=== PATIENT | female | born 1930 | race Caucasian/White ===

== ENCOUNTER 2016-11-01 09:22 | Emergency (ER) | payer MEDICARE ==
[2016-11-01] MEDS ORDERED: IBUPROFEN 600 MG TABLET PO ONE (09:36)
[2016-11-01] MEDS ORDERED: ACETAMINOPHEN 325 MG TABLET PO ONE (09:41)
--- NOTE | 2016-11-01 09:45 | ER Document Report ---
ED General - General Chief Complaint: Fall Injury Stated Complaint: FALL/ARM PAIN Time Seen by Provider: 11/01/16 09:36 Mode of Arrival: Ambulatory Information source: Patient Notes: 85-year-old female presents after mechanical fall striking her left side. Patient admits to left elbow shoulder pain. Patient notes she is unable to move it due to the pain. Denies any other injuries denies any back pain neck pain TRAVEL OUTSIDE OF THE [place] IN LAST 30 DAYS: No - HPI Onset: Just prior to arrival Onset/Duration: Sudden Quality of pain: Achy Severity: Mild Pain Level: 1 Associated symptoms: Body/muscle aches Exacerbated by: Movement Relieved by: Denies Similar symptoms previously: Yes Recently seen / treated by doctor: Yes - Related Data Allergies/Adverse Reactions: codeine [Codeine] Allergy (Severe, Verified 11/01/16 09:27) Hives cyclosporine [From Restasis] Allergy (Severe, Verified 11/01/16 09:27) redness,bloody nose Past Medical History - Social History Smoking Status: Never Smoker Cigarette use (# per day): No Chew tobacco use (# tins/day): No Smoking Education Provided: No Family History: Reviewed & Not Pertinent Patient has suicidal ideation: No Patient has homicidal ideation: No - Past Medical History Cardiac Medical History: Reports: Hx Coronary Artery Disease - heart stent, Hx Hypertension - on meds Denies: Hx Heart Attack Pulmonary Medical History: Reports: Hx Bronchitis - hx of Denies: Hx Asthma, Hx COPD, Hx Pneumonia Neurological Medical History: Denies: Hx Cerebrovascular Accident, Hx Seizures Endocrine Medical History: Reports: Hx Diabetes Mellitus Type 2 Renal/ Medical History: Denies: Hx Peritoneal Dialysis GI Medical History: Denies: Hx Hepatitis, Hx Hiatal Hernia, Hx Ulcer Musculoskeltal Medical History: Reports Hx Arthritis - back Infectious Medical History: Denies: Hx Hepatitis Past Surgical History: Reports: Hx Hysterectomy, Hx Orthopedic Surgery - foot / back. Denies: Hx Mastectomy, Hx Open Heart Surgery, Hx Pacemaker - Immunizations Hx Diphtheria, Pertussis, Tetanus Vaccination: Yes Review of Systems - Review of Systems Notes: REVIEW OF SYSTEMS: CONSTITUTIONAL : Denies fever, chills, or sweats. Denies recent illness. EENT: Denies eye, ear, throat, or mouth pain or symptoms. Denies nasal or sinus congestion or discharge. Denies throat, tongue, or mouth swelling or difficulty swallowing. CARDIOVASCULAR: Denies chest pain. Denies palpitations or racing or irregular heart beat. Denies ankle edema. RESPIRATORY: Denies cough, cold, or chest congestion. Denies shortness of breath, difficulty breathing, or wheezing. GASTROINTESTINAL: Denies abdominal pain or distention. Denies nausea, vomiting , or diarrhea. Denies blood in vomitus, stools, or per rectum. Denies black, tarry stools. Denies constipation. GENITOURINARY: Denies difficulty urinating, painful urination, burning, frequency, blood in urine, or discharge. FEMALE GENITOURINARY: Denies vaginal bleeding, heavy or abnormal periods, irregular periods. Denies vaginal discharge or odor. MUSCULOSKELETAL: Admits to left elbow shoulder pain SKIN: Denies rash, lesions or sores. HEMATOLOGIC : Denies easy bruising or bleeding. LYMPHATIC: Denies swollen, enlarged glands. NEUROLOGICAL: Denies confusion or altered mental status. Denies passing out or loss of consciousness. Denies dizziness or lightheadedness. Denies headache. Denies weakness or paralysis or loss of use of either side. Denies problems with gait or speech. Denies sensory loss, numbness, or tingling. Denies seizures. PSYCHIATRIC: Denies anxiety or stress. Denies depression, suicidal ideation, or homicidal ideation. ALL OTHER SYSTEMS REVIEWED AND NEGATIVE. PHYSICAL EXAMINATION: GENERAL: Well-appearing, well-nourished and in no acute distress. HEAD: Atraumatic, normocephalic. EYES: Pupils equal round and reactive to light, extraocular movements intact, conjunctiva are normal. ENT: Nares patent, oropharynx clear without exudates. Moist mucous membranes. NECK: Normal range of motion, supple without lymphadenopathy LUNGS: Breath sounds clear to auscultation bilaterally and equal. No wheezes rales or rhonchi. HEART: Regular rate and rhythm without murmurs ABDOMEN: Soft, nontender, nondistended abdomen. No guarding, no rebound. No masses appreciated. Female : deferred Musculoskeletal: Range of motion of the left elbow shoulder tender to palpation NEUROLOGICAL: Cranial nerves grossly intact. Normal speech, normal gait. Normal sensory, motor exams PSYCH: Normal mood, normal affect. SKIN: Warm, Dry, normal turgor, no rashes or lesions noted. Dictation was performed using Dragon voice recognition software Physical Exam - Vital signs Vitals: Temp Pulse Resp BP Pulse Ox 97.9 F 83 16 163/95 H 95 11/01/16 09:27 11/01/16 09:27 11/01/16 09:27 11/01/16 09:27 11/01/16 09:27 Course - Re-evaluation Re-evalutation: 11/01/16 09:45 Probable fracture of the elbow x-ray pending 11/01/16 10:45 Distal humeral fracture is noted, patient will be splinted and given orthopedic follow-up 11/01/16 10:57 After performing a Medical Screening Examination, I estimate there is LOW risk for INTRACRANIAL HEMORRHAGE, UNSTABLE SPINE FRACTURE, CENTRAL CORD SYNDROME, CAUDA EQUINA, THORACIC AORTIC DISSECTION, PNEUMOTHORAX, PERFORATED BOWEL, RUPTURED ABDOMINAL AORTIC ANEURYSM, ACUTE TENDON RUPTURE, COMPARTMENT SYNDROME, or OPEN FRACTURE, thus I consider the discharge disposition reasonable. Also, there is no evidence or peritonitis, sepsis, or toxicity. I have reevaluated this patient multiple times and no significant life threatening changes are noted. The patient and I have discussed the diagnosis and risks, and we agree with discharging home to follow-up with their primary doctor with the understanding that symptoms and presentations can change. We also discussed returning to the Emergency Department immediately if new or worsening symptoms occur. We have discussed the symptoms which are most concerning (e.g., bloody stool, fever, changing or worsening pain, vomiting) that necessitate immediate return. - Vital Signs Vital signs: Temp Pulse Resp BP Pulse Ox 97.9 F 83 16 163/95 H 95 11/01/16 09:27 11/01/16 09:27 11/01/16 09:27 11/01/16 09:27 11/01/16 09:27 - Diagnostic Test Radiology reviewed: Image reviewed, Reports reviewed - reprt given to patient Procedures - Immobilization Left Elbow Time completed: 10:57 Pre-Proc Neuro Vasc Exam: Normal Immobilizer type: Long arm posterior, Sling Performed by: PCT Post-Proc Neuro Vasc Exam: Normal Alignment checked and good: Yes Discharge - Discharge Clinical Impression: Humerus distal fracture Qualifiers: Encounter type: initial encounter Fracture type: closed Fracture morphology: other fracture Fracture alignment: nondisplaced Laterality: left Qualified Code( s): S42.495A - Other nondisplaced fracture of lower end of left humerus, initial encounter for closed fracture Shoulder pain Qualifiers: Chronicity: acute Laterality: left Qualified Code(s): M25.512 - Pain in left shoulder Condition: Stable Disposition: HOME, SELF-CARE Instructions: Fracture Proximal Humerus Referrals: KATLYN ORELLANA MD [Primary Care Provider] - Follow up as needed CHAMP WEBSTER MD [ACTIVE STAFF] - Follow up tomorrow
--- NOTE | 2016-11-01 10:29 | RADIOLOGY REPORT (SQ) ---
EXAM DESCRIPTION: ELBOW LEFT OVER 2 VIEWS COMPLETED DATE/TIME: 11/01/2016 9:57 am REASON FOR STUDY: fall COMPARISON: None. NUMBER OF VIEWS: Four views. TECHNIQUE: AP, lateral, and both oblique radiographic images acquired of the left elbow. LIMITATIONS: None. FINDINGS: MINERALIZATION: Normal. BONES: Minimally displaced acute fracture involving the distal humerus in the supracondylar region. Deformity of the radial head which does not appear acute. Small well corticated bony densities adjac ent to the lateral condyle in coronoid process likely old avulsion injuries. JOINT: Large joint effusion. SOFT TISSUES: No soft tissue swelling. No foreign body. OTHER: No other significant finding. IMPRESSION: Acute fracture involving the distal humerus. TECHNICAL DOCUMENTATION: JOB ID: [id number] [employer]- All Rights Reserved
--- NOTE | 2016-11-01 10:31 | RADIOLOGY REPORT (SQ) ---
EXAM DESCRIPTION: SHOULDER LEFT 2 OR MORE VIEWS/ left shoulder COMPLETED DATE/TIME: 11/01/2016 9:57 am REASON FOR STUDY: fall COMPARISON: None. NUMBER OF VIEWS: Three views. TECHNIQUE: Internal rotation, external rotation, and Y view images acquired of the left shoulder. LIMITATIONS: None. FINDINGS: MINERALIZATION: Normal. BONES: No acute fracture or dislocation. No worrisome bone lesions. JOINTS: Arthritic changes glenohumeral and AC joint. VISUALIZED LUNGS AND RIBS: No pneumothorax. No rib fracture. SOFT TISSUES: Tendon calcification lateral to the humeral head. OTHER: Surgical clips left axilla IMPRESSION: No acute fracture dislocation. Chronic changes are noted. TECHNICAL DOCUMENTATION: JOB ID: [id number] [employer]- All Rights Reserved
[2016-11-01 11:41] VITALS: BP 154/70
== END 2016-11-01 11:50 | disposition home or self-care (01) ==
LOC: ER 09:22
PROC: 2W39X1Z Immobilization of Left Upper Extremity using Splint (ICD-10-PCS; principal; 2016-11-01)
DX: S42.495A Other nondisplaced fracture of lower end of left humerus, initial encounter for closed fracture (principal); M25.512 Pain in left shoulder; W18.30XA Fall on same level, unspecified, initial encounter; I25.10 Atherosclerotic heart disease of native coronary artery without angina pectoris; I10 Essential (primary) hypertension; E11.9 Type 2 diabetes mellitus without complications; Z88.6 Allergy status to analgesic agent; Z90.710 Acquired absence of both cervix and uterus
CPT/HCPCS: 99283; 73080; 73030; 29105; A9270

== ENCOUNTER 2016-11-02 05:52 | Emergency (ER) | payer MEDICARE ==
--- NOTE | 2016-11-02 07:11 | ER Document Report ---
HPI - HPI Patient complains to provider of: Left elbow pain Onset: Yesterday Onset/Duration: Persistent Pain Level: 4 Context: 85-year-old female with distal left humerus fracture diagnosed yesterday is complaining of persistent pain and inability to sleep. Tylenol did not relieve her pain and the splint is bothering her. She has an appointment with Dr. Webster on Tuesday. Associated Symptoms: None Exacerbated by: Movement Relieved by: Denies Similar symptoms previously: No Recently seen / treated by doctor: Yes - ROS ROS below otherwise negative: Yes Systems Reviewed and Negative: Yes All other systems reviewed and negative - CARDIOVASCULAR Cardiovascular: DENIES: Chest pain - REPRODUCTIVE Reproductive: DENIES: : - DERM Skin Color: Normal Past Medical History - General Information source: Patient - Social History Smoking Status: Never Smoker Frequency of alcohol use: None Drug Abuse: None Lives with: Family Family History: Reviewed & Not Pertinent Patient has suicidal ideation: No Patient has homicidal ideation: No - Past Medical History Cardiac Medical History: Reports: Hx Coronary Artery Disease - heart stent, Hx Hypertension - on meds Pulmonary Medical History: Reports: Hx Bronchitis - hx of Endocrine Medical History: Reports: Hx Diabetes Mellitus Type 2 Renal/ Medical History: Denies: Hx Peritoneal Dialysis Musculoskeltal Medical History: Reports Hx Arthritis - back Past Surgical History: Reports: Hx Hysterectomy, Hx Orthopedic Surgery - foot / back - Immunizations Hx Diphtheria, Pertussis, Tetanus Vaccination: Yes Vertical Provider Document - CONSTITUTIONAL Agree With Documented VS: Yes Exam Limitations: No Limitations - INFECTION CONTROL TRAVEL OUTSIDE OF THE [place] IN LAST 30 DAYS: No - HEENT HEENT: Normocephalic - NECK Neck: Supple - RESPIRATORY O2 Sat by Pulse Oximetry: 95 - MUSCULOSKELETAL/EXTREMETIES Musculoskeletal/Extremeties: Tender, Edema, Eccymosis - left elbow after the splint removed, distal N/V intact - NEURO Level of Consciousness: Awake, Alert, Appropriate Motor/Sensory: No Motor Deficit, No Sensory Deficit - DERM Integumentary: Warm, Dry Course - Re-evaluation Re-evalutation: 11/02/16 08:38 Pain is reduced with slight nausea I am giving her sandra talia and crackers and will redo the splint with Alexis the PCP. - Vital Signs Vital signs: Temp Pulse Resp BP Pulse Ox 83 16 141/79 H 95 11/02/16 06:04 11/02/16 06:04 11/02/16 06:04 11/02/16 06:04 Procedures - Immobilization Left Posterior Arm Time completed: 09:22 Pre-Proc Neuro Vasc Exam: Normal Immobilizer type: Long arm posterior Performed by: PCT - and myself Post-Proc Neuro Vasc Exam: Normal Alignment checked and good: Yes Notes: 11/02/16 09:22 longer sling applied, pt more comfortable Discharge - Discharge Clinical Impression: Pain management, hx fx distal left humerus, splint reapplication Condition: Good Disposition: HOME, SELF-CARE Instructions: Splint Precautions ([facility]), Temporary Splint ([facility]), Sling to be Used ([facility]), Oral Narcotic Medication ([facility]), Antinausea Medication ([facility]), Fracture ([facility]) Additional Instructions: use pillows to support while sleeping, take the sling off at night see dr. webster as planned on tuesday to er sooner if worse take your pain medication Please complete the patient satisfaction survey if you get one, and return it.. If you do not receive a survey, then you can go to the [facility] website, [email or web address] and place your comments about your very good care. Thank you very much. It was a pleasure being your medical provider today. Prescriptions: Ondansetron HCl [Zofran 4 mg Tablet] 1 - 2 tab PO Q4H PRN #60 tablet PRN Reason: Oxycodone HCl/Acetaminophen [Percocet 5-325 mg Tablet] 1 tab PO ASDIR PRN #30 tablet PRN Reason: Referrals: CHAMP WEBSTER MD [ACTIVE STAFF] - 11/05/16
[2016-11-02] MEDS ORDERED: OXYCODONE-ACETAMINOPHEN 5-325 MG TABLET PO ONE (07:18)
[2016-11-02] MEDS ORDERED: ONDANSETRON 4 MG TAB.RAPDIS PO ONE (07:18)
[2016-11-02 10:12] VITALS: BP 126/80
== END 2016-11-02 09:45 | disposition home or self-care (01) ==
LOC: ER 05:52
PROC: 2W39X1Z Immobilization of Left Upper Extremity using Splint (ICD-10-PCS; principal; 2016-11-02)
DX: S42.402D Unspecified fracture of lower end of left humerus, subsequent encounter for fracture with routine healing (principal); M25.522 Pain in left elbow; X58.XXXD Exposure to other specified factors, subsequent encounter; R11.0 Nausea; I25.10 Atherosclerotic heart disease of native coronary artery without angina pectoris; I10 Essential (primary) hypertension; E11.9 Type 2 diabetes mellitus without complications; Z98.61 Coronary angioplasty status
CPT/HCPCS: 99283; 29105; A9270 ×2; S0119

== ENCOUNTER 2017-03-01 05:26 | Observation (INO) | payer MEDICARE ==
[2017-02-17 10:13] LABS: ANION GAP 14 (5-19); BLOOD UREA NITROGEN 18 mg/dL (7-20); CALCIUM 9.7 mg/dL (8.4-10.2); CARBON DIOXIDE 27 mmol/L (22-30); CHLORIDE 100 mmol/L (98-107); CREATININE RESULT 0.65 mg/dL (0.52-1.25); GLUCOSE 147 mg/dL (75-110); POTASSIUM 4.2 mmol/L (3.6-5.0); SODIUM 140.9 mmol/L (137-145)
[2017-02-17 10:15] LABS: ABSOLUTE BASOPHILS # (AUTO) 0.1 10^3/uL (0.0-0.2); ABSOLUTE EOSINOPHILS # (AUTO) 0.2 10^3/uL (0.0-0.6); ABSOLUTE LYMPHOCYTES (AUTO) 2.7 10^3/uL (0.5-4.7); ABSOLUTE NEUT (AUTO) 7.5 10^3/uL (1.7-8.2); BASOPHILS % (AUTO) 0.7 % (0-2); HEMATOCRIT 41.9 % (36.0-47.0); HEMOGLOBIN 14.3 g/dL (12.0-15.5); LYMPHOCYTES % (AUTO) 23.8 % (13-45); MEAN CORPUSCULAR HEMOGLOBIN 31.1 pg (27.0-33.4); MEAN CORPUSCULAR HGB CONC 34.1 g/dL (32.0-36.0); MEAN CORPUSCULAR VOLUME 91 fl (80-97); MONOCYTES % (AUTO) 8.5 % (3-13); RED CELL DISTRIBUTION WIDTH 13.9 % (11.5-14.0); WHITE BLOOD COUNT 11.5 10^3/uL (4.0-10.5)
--- NOTE | 2017-02-17 11:18 | RADIOLOGY REPORT (SQ) ---
EXAM DESCRIPTION: CHEST PA/LATERAL COMPLETED DATE/TIME: 02/17/2017 11:06 am REASON FOR STUDY: PRE OP COMPARISON: None. EXAM PARAMETERS: NUMBER OF VIEWS: two views TECHNIQUE: Digital Frontal and Lateral radiographic views of the chest acquired. RADIATION DOSE: NA LIMITATIONS: none FINDINGS: LUNGS AND PLEURA: No opacities, masses or pneumothorax. No pleural effusion. MEDIASTINUM AND HILAR STRUCTURES: No masses or contour abnormalities. HEART AND VASCULAR STRUCTURES: Heart normal size. No evidence for failure. BONES: No acute findings. HARDWARE: Kyphoplasty changes thoracic spine. Surgical clips in the left axilla. OTHER: No other significant finding. IMPRESSION: NO SIGNIFICANT RADIOGRAPHIC FINDING IN THE CHEST. TECHNICAL DOCUMENTATION: JOB ID: [id number] [employer]- All Rights Reserved
[2017-02-17 14:05] LABS: APPEARANCE,URINE CLEAR; BILIRUBIN,URINE NEGATIVE (NEGATIVE); GLUCOSE, URINE NEGATIVE (NEGATIVE); KETONES,URINE NEGATIVE (NEGATIVE); LEUKOCYTE ESTERASE,URINE NEGATIVE (NEGATIVE); NITRITE,URINE NEGATIVE (NEGATIVE); PROTEIN,URINE NEGATIVE (NEGATIVE); URINE SPECIFIC GRAVITY 1.016; UROBILINOGEN,URINE NEGATIVE mg/dL (<2.0)
--- NOTE | 2017-02-17 20:17 | EKG REPORT ---
SEVERITY:- NORMAL ECG - SINUS RHYTHM : Confirmed by: Kera Prescott MD 17-Feb-2017 20:16:36
[~2017-03-01 05:26] MED LIST: CEFAZOLIN 2 GM/D5W RTU 2 GM/50 ML RTUPB IV PRN; LACTATED RINGERS 1000 ML IV PRN; LIDOCAINE 0.5% INJ-PF (5 MG/ML) 50 ML SDV SUBCUT PRN
[2017-03-01] MEDS ORDERED: MIDAZOLAM 2 MG/2 ML INJ ONE (07:06)
[2017-03-01] MEDS ORDERED: EPHEDRINE SULFATE INJ 50 MG/1 ML AMPULE ONE (07:06)
[2017-03-01] MEDS ORDERED: FENTANYL CITRATE INJ/PF 250 MCG/5 ML AMPULE ONE (07:06)
[2017-03-01] MEDS ORDERED: ONDANSETRON HCL INJ/PF 4 MG/2 ML SDV ONE ×2 (07:06→11:47)
[2017-03-01] MEDS ORDERED: LIDOCAINE 2% INJ-PF (20 MG/ML) 10 ML AMPUL ONE (07:06)
[2017-03-01] MEDS ORDERED: PROPOFOL INJ 200 MG/20 ML VIAL IV ONE (07:07)
[2017-03-01] MEDS ORDERED: ACETAMINOPHEN 100 ML IV ONE ×2 (07:07→17:03)
[2017-03-01] MEDS ORDERED: BUPIVACAINE HCL 0.5 % INJ/PF 30 ML SDV ONE (07:15)
[2017-03-01] MEDS ORDERED: ONDANSETRON HCL INJ/PF 4 MG/2 ML SDV IV PRN (08:03)
[2017-03-01] MEDS ORDERED: MEPERIDINE HCL/PF INJ 25 MG/1 ML DISP.SYRIN IV PRN (08:03)
[2017-03-01] MEDS ORDERED: DIPHENHYDRAMINE HCL 50 MG/ML VIAL IV PRN ×2 (08:03→11:02)
[2017-03-01] MEDS ORDERED: PROMETHAZINE HCL INJ 25 MG/1 ML VIAL IV PRN ×2 (08:03)
[2017-03-01] MEDS ORDERED: FENTANYL CITRATE INJ/PF 100 MCG/2 ML AMPUL IV PRN ×3 (08:03)
[2017-03-01] MEDS ORDERED: HYDRALAZINE HCL INJ/PF 20 MG/1 ML SDV ONE (08:36)
[2017-03-01] MEDS ORDERED: VANCOMYCIN HCL INJ 1000 MG VIAL ONE (09:34)
[2017-03-01] MEDS ORDERED: HYDROMORPHONE HCL INJ/PF 2 MG/ML AMPULE ONE (09:45)
[2017-03-01] MEDS ORDERED: MORPHINE SULFATE 10 MG/ML INJ IM PRN (11:02)
[2017-03-01] MEDS ORDERED: OXYCODONE HCL IR 5 MG TABLET PO PRN (11:02)
[2017-03-01] MEDS ORDERED: MORPHINE SULFATE 10 MG/ML INJ IV PRN ×3 (11:02)
--- NOTE | 2017-03-01 11:02 | Operative Report ---
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 She was treated conservatively but continued to have notable pain and collapse at the fracture site. CT scan was done demonstrating lack of healing. We continued to attempt conservative management but secondary to patient's persistent pain and presence of nonunion the joint decision was made to proceed with operative intervention including left total elbow arthroplasty. Risks and benefits were explained to the patient she verbalized understanding and consented for the procedure. Procedure In Detail: Patient was seen and evaluated in the preoperative holding area. The LEFT upper extremity was initialized and marked. Patient received 2g of Ancef IV for bacterial prophylaxis. Patient was taken back to the operative room where transferred to the operative table and placed under general anesthesia. Once they were adequately anesthetized a surgical team debriefing was performed ensuring all instrumentation was available, the surgical procedure was discussed with possible concerns reviewed. The upper extremity was prepped with ChloraPrep and draped in a sterile fashion. A timeout was done identifying correct patient, procedure and extremity everyone in attendance agree with this and verbalized no concerns. A sterile tourniquet was placed around the upper extremity extremity was then exsanguinated to 250 mmHg. Posterior skin incision was utilized just lateral to the medial epicondyle. Blunt dissection was performed. Branches of the medial antebrachial cutaneous nerve were identified and retracted. The ulnar nerve was identified proximally as it exited triceps fascia and released down to the FCU fascia. The medial intramuscular septum was then excised and a vessel loop was placed around the ulnar nerve. The ulnar nerve was neurolysed proximally and distally and gently transposed anteriorly placed in a subcutaneous pocket to allow for transposition at the completion of the case. Blood supply to the ulnar nerve remained intact proximally until its branching point distally where the tributaries were coagulated with bipolar cautery. I then released the floor of the cubital tunnel including the anterior bundle of the medial collateral ligament and posteriorly along the medial border of the humerus. The flexor pronator mass was carefully elevated off of bone from the medial epicondyle exposing the medial epicondyle. The transcondylar nonunion was then identified medially. The anterior capsule was carefully released from the anterior aspect of the humerus taking special care to avoid dissection into the brachialis muscle culture. I then turned my attention laterally. Anita's interval was established and the lateral collateral ligament and extensor origin was released from the lateral epicondyle. The lateral intermuscular septum was carefully incised off of bone. The anterior capsule was carefully elevated off the anterior aspect of the humerus. The radial nerve was identified proximally at the lateral intermuscular septum and anterior to the radial head. The transcondylar nonunion was then removed in its entirety. There was fibrous healing but no evidence of osseous remodeling appreciated. With pronation of the forearm complete exposure of the distal humerus and ulna was accomplished. A rongeur was used to open the canal of the distal humerus I then proceeded with canal finder and broaching up to a standard small size [place] and a trial was placed. I then turned my attention to the proximal ulna. The tip of the olecranon was removed with a rondure. I then utilized the TPS bur to open the canal and excise the anterior aspect of the coronoid and posterior along the olecranon. The canal finder was then utilized and I broached up to a extra small [place] ulnar template. The trial was then placed and locked into position. I easy full passive flexion with full passive extension utilizing gravity. C-arm fluoroscopy was obtained confirming appropriate placement of the components. The wound was then copiously irrigated with normal saline and the implants were opened. The humeral and ulna was prepared. A cement restrictor was placed through the humerus I also placed a small piece of bone to allow further filling of the canal. On the back table my nurses medical assistants phlebotomists prepared the [place] with tobramycin cement. Once the appropriate consistency was injected into the ulna and the implant seated into it appropriate position. Any excess cement was then removed. Cement was then placed into the humerus once again with the cement gun a small bone graft was placed between the anterior flange and the humerus as the implant was gently placed into position. The components were then locked into position and the elbow placed in full extension until the cement was dry. The wound was then copiously irrigated with normal saline once again any remnant cement was removed. C-arm fluoroscopy was obtained confirming appropriate placement of the implants and good range of motion. Irricept was then utilized. The flexor pronator mass along with the capsule was closed over the medial epicondyle with interrupted 0 Vicryl suture. The lateral collateral ligament complex and extensor mobile wad was secured over the lateral condyle. The wound was packed with vancomycin powder. The tourniquet was then deflated. Any peripheral vasculature was coagulated with bipolar cautery. The ulnar nerve was placed subcutaneously and secured with a small subcutaneous pouch utilizing 2-0 Vicryl suture. There is no evidence of nerve compression with range of motion or under direct visualization or palpation. Subcutaneous tissues were then closed with interrupted 3-0 Monocryl suture. Skin was closed with do. 25 cc of 0.5% Marcaine without epinephrine was injected for postoperative pain control. Acticoat dressing and OpSite was then placed over the wound. Patient was placed in a posterior elbow splint maintaining extension of 20. Sponge counts, instrument counts, needle counts counts were correct. Patient was then awoken from anesthesia. Transferred from the operating room table to the operating room stretcher. There was no intraoperative complications patient tolerated procedure well stable to PACU. Postoperative plan: Patient will follow-up the office in 2 weeks at which point we will obtain radiographs and patient will begin occupational therapy.
[2017-03-01] MEDS: KETOROLAC TROMETHAMINE INJ/PF 30 MG/1 ML SDV IV SCH ×3 (13:20→23:57)
[2017-03-01] MEDS: CEFAZOLIN 2 GM/D5W RTU 2 GM/50 ML RTUPB IV SCH ×3 (13:20→23:57)
[2017-03-01] MEDS ORDERED: SUCCINYLCHOLINE CHLORIDE INJ 200 MG/10 ML VIAL ONE (14:13)
--- NOTE | 2017-03-01 14:37 | RADIOLOGY REPORT (SQ) ---
EXAM DESCRIPTION: NO CHG FLUORO; ELBOW LEFT AP/LATERAL COMPLETED DATE/TIME: 03/01/2017 1:19 pm REASON FOR STUDY: ARTHROPLASTY LEFT ELBOW ASSISTED WITH FLUORO IN OR S42.402G UNSP FX LOWER END OF L HUMERUS, SUBS FOR FX W DELAY Z79.01 [employer] (CURRENT) USE OF ANTICOAGULANTS COMPARISON: 11/01/2016. FLUOROSCOPY TIME: 0.2 minutes. 5 images saved to PACS. TECHNIQUE: Intra-operative images acquired during surgical procedure to evaluate progress. NUMBER OF IMAGES: 5 images. LIMITATIONS: None. FINDINGS: Placement of elbow prosthesis in the distal humerus and proximal ulna. IMPRESSION: IMAGE(S) OBTAINED DURING PROCEDURE. COMMENT: Quality ID [id number]: Final reports for procedures using fluoroscopy that document radiation exp osure indices, or exposure time and number of fluorographic images (if radiation exposure indices are not available) Please consult full operative report of the attending physician for description of the procedure. TECHNICAL DOCUMENTATION: JOB ID: [id number] [employer]- All Rights Reserved
--- NOTE | 2017-03-01 14:37 | RADIOLOGY REPORT (SQ) ---
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 FLUOROSCOPY TIME: 0.2 minutes. 5 images saved to PACS. TECHNIQUE: Intra-operative images acquired during surgical procedure to evaluate progress. NUMBER OF IMAGES: 5 images. LIMITATIONS: None. FINDINGS: Placement of elbow prosthesis in the distal humerus and proximal ulna. IMPRESSION: IMAGE(S) OBTAINED DURING PROCEDURE. COMMENT: Quality ID [id number]: Final reports for procedures using fluoroscopy that document radiation exp osure indices, or exposure time and number of fluorographic images (if radiation exposure indices are not available) Please consult full operative report of the attending physician for description of the procedure. TECHNICAL DOCUMENTATION: JOB ID: [id number] [employer]- All Rights Reserved
[2017-03-01] MEDS ORDERED: INFLUENZA ADLT QUAD (36MOS+) 2017-18 VAC 0.5 ML SYR IM PRN (17:08)
[2017-03-01] MEDS: PREGABALIN 75 MG CAPSULE PO SCH (18:29)
[2017-03-01] MEDS: ONDANSETRON 4 MG TAB.RAPDIS PO PRN (18:54)
[2017-03-01] MEDS ORDERED: RIVAROXABAN 10 MG TABLET PO SCH (22:00)
[2017-03-01] MEDS ORDERED: OXYCODONE HCL SR 10 MG TABLET PO SCH (22:00)
[2017-03-02] MEDS: TRAMADOL HCL 50 MG TABLET PO PRN ×2 (03:42→09:34)
[2017-03-02] MEDS: ONDANSETRON 4 MG TAB.RAPDIS PO PRN ×2 (03:42→09:42)
[2017-03-02] MEDS: CEFAZOLIN 2 GM/D5W RTU 2 GM/50 ML RTUPB IV SCH ×2 (05:25→14:14)
[2017-03-02] MEDS: KETOROLAC TROMETHAMINE INJ/PF 30 MG/1 ML SDV IV SCH ×2 (05:25→13:51)
[2017-03-02] MEDS ORDERED: LANSOPRAZOLE 30 MG TAB.RAP.DR PO SCH (06:00)
[2017-03-02 07:15] LABS: ANION GAP 11 (5-19); BLOOD UREA NITROGEN 11 mg/dL (7-20); CALCIUM 8.3 mg/dL (8.4-10.2); CARBON DIOXIDE 25 mmol/L (22-30); CHLORIDE 95 mmol/L (98-107); CREATININE RESULT 0.57 mg/dL (0.52-1.25); GLUCOSE 116 mg/dL (75-110); POTASSIUM 3.5 mmol/L (3.6-5.0); SODIUM 131.2 mmol/L (137-145)
[2017-03-02] MEDS: PREGABALIN 75 MG CAPSULE PO SCH (09:35)
[2017-03-02] MEDS ORDERED: HYDROCHLOROTHIAZIDE 12.5 MG CAPSULE PO SCH (10:00)
[2017-03-02] MEDS ORDERED: (PENDING PHARMACY ID) (Losartan/Hydrochlorothiazide [Losartan-Hctz 50-12.5 Mg Tab] 1 EACH) PO SCH (10:00)
[2017-03-02] MEDS ORDERED: COLESEVELAM HCL 625 MG TABLET PO SCH (10:00)
[2017-03-02] MEDS ORDERED: LOSARTAN POTASSIUM 50 MG TABLET PO SCH (10:00)
[2017-03-02 15:46] VITALS: BP 130/52
--- NOTE | 2017-03-08 08:16 | PDOC DISCHARGE SUMMARY ---
General - Admit/Disc Date/PCP Admission Date/Primary Care Provider: 03/01/17 11:03 KATLYN ORELLANA MD Discharge Date: 03/02/17 - Additional Information Discharge Diet: Regular Discharge Activity: Balance Activity w/Rest, No Driving, No Lifting Over 10 Pounds, No Lifting/Push/Pulling, No tub bath Home Medications: Colesevelam HCl [Welchol 625 mg Tablet] 625 mg PO DAILY 03/07/12 Losartan/Hydrochlorothiazide [Losartan-Hctz 50-12.5 mg Tab] 1 each PO DAILY Aspirin [Aspirin 325 mg Tablet] 325 mg PO DAILY #20 tablet 03/01/17 Oxycodone HCl/Acetaminophen [Percocet 5-325 mg Tablet] 1 - 2 tab PO ASDIR PRN # 45 tablet 03/01/17 History of Present Illness Patient complains of: Right Elbow Pain History of Present Illness: 86-year-old female sustained a fall onto her left elbow on 11/01/16. She was treated conservatively but continued to have notable pain and collapse at the fracture site. CT scan was done demonstrating lack of healing. We continued to attempt conservative management but secondary to patient's persistent pain and presence of nonunion the joint decision was made to proceed with operative intervention including left total elbow arthroplasty. Risks and benefits were explained to the patient she verbalized understanding and consented for the procedure. Hospital Course Hospital Course: Patient underwent right total elbow arthroplasty on 03/01/17. There was no intraoperative complications patient was stable in PACU. On postoperative rounds that evening patient was having some nausea but pain was controlled. On 03/02/17 her nausea and discomfort notably improved patient was seen by physical therapy and able to get out of bed. At that point patient was stable for discharge to home with home health. Physical Exam Vital Signs: Temp Pulse Resp BP Pulse Ox 97.8 F 93 16 130/52 H 98 03/02/17 15:35 03/02/17 15:35 03/02/17 15:35 03/02/17 15:35 03/02/17 15:35 General appearance: PRESENT: no acute distress Respiratory exam: PRESENT: unlabored Musculoskeletal exam: PRESENT: other - Right elbow: Dressing clean/dry/intact no erythema or drainage. No sensory deficits. IP/MP joint flexion extension intact. Intact EPL/FPL. Neurological exam: PRESENT: alert, awake, oriented to person, oriented to place , oriented to time, oriented to situation, CN II-XII grossly intact. ABSENT: motor sensory deficit Results Laboratory Results: 02/17/17 09:08 03/02/17 06:38 Impressions: Chest X-Ray 02/17/17 10:50 IMPRESSION: NO SIGNIFICANT RADIOGRAPHIC FINDING IN THE CHEST. Elbow X-Ray 03/01/17 00:00 IMPRESSION: IMAGE(S) OBTAINED DURING PROCEDURE. Fluoroscopy 03/01/17 00:00 IMPRESSION: IMAGE(S) OBTAINED DURING PROCEDURE. Plan Discharge Plan: Patient progressed appropriate throughout hospital course on 03/02/17 patient's nausea and pain notably improved and at that point decision was made to proceed with discharge home with home health. Patient was to call with the office any questions or concerns including increasing redness, swelling, drainage temperature greater than 101.5. Patient was read above instructions understood above instructions and was orthopedically stable for discharge to home. Patient is to continue aspirin for DVT prophylaxis.
== END 2017-03-02 16:40 | disposition home health service (06) ==
LOC: OROUT 05:26 → EDSTATUS 07:30 → 4S 11:03 → OROUT 12:54 → 4S 03-02 16:40 → OROUT 03-02 17:13
PROVIDERS: ADMIT Orthopaedic Surgery; ATTEND Orthopaedic Surgery
PROC: 0RRM0JZ Replacement of Left Elbow Joint with Synthetic Substitute, Open Approach (ICD-10-PCS; principal; 2017-03-01 07:30)
DX: S42.47 Transcondylar fracture of humerus (principal); W10.9XXD Fall (on) (from) unspecified stairs and steps, subsequent encounter; K91.89 Other postprocedural complications and disorders of digestive system; R11.0 Nausea; M06.9 Rheumatoid arthritis, unspecified; M54.5 Low back pain; M54.6 Pain in thoracic spine; M54.2 Cervicalgia; Z79.82 Long term (current) use of aspirin; Z79.899 Other long term (current) drug therapy
CPT/HCPCS: 24363; 93005; 36415 ×2; 82962; 84132; 85025; 80048 ×2; 81001; 83036; 71020; 73070; 94799; 93010; 97162; 97167; J2250; A9270 ×6; J3490 ×3; J3010; J0360; J1885 ×2; J1170; J0330; J2405; J2704; J3370; J0690 ×2; J0131; G8978; G8979; G8987; G8988; 01760; S0119